=== PATIENT | female | born 1960 | race Caucasian/White ===

== ENCOUNTER 2018-06-02 13:14 | Emergency (ER) | payer OTHER ==
[2018-06-02 13:52] VITALS: BP 131/69; PULSE 81; TEMP 99.8; BMI 41.1
--- NOTE | 2018-06-02 14:28 | PDOC ---
History of Present Illness - General Chief Complaint: Injury Stated Complaint: INJURY,RT ANKLE Time Seen by Provider: 06/02/18 14:14 - History of Present Illness Initial Comments: 06/02/18 14:22 57-year-old female with a past medical history significant for ADHD, she takes Wellbutrin and Prozac presents for evaluation of right ankle and foot pain after a fall at work earlier today while coming down some steps. She denies hitting her head. She describes an inversion type of injury to her right ankle and foot. No postinjury nausea vomiting or visual changes no other associated symptoms besides right ankle and foot pain. Past History - Past Medical History Allergies/Adverse Reactions: Allergies Allergy/AdvReac Type Severity Reaction Status Date / Time Penicillins Allergy Verified 06/02/18 13:52 Home Medications: Ambulatory Orders Acetaminophen W/ Codeine #3 [Tylenol # 3] 1 combo PO Q8H PRN #1 tablet 02/28/12 Bupropion HCl [Wellbutrin -] 150 mg PO DAILY #1 tablet 02/28/12 Fluoxetine [Fluoxetine HCl] 80 mg PO HS #1 powder 02/28/12 Levothyroxine [Synthroid -] 125 mcg PO DAILY #1 tablet 02/28/12 Anemia: No Asthma: No Cancer: No Cardiac Disorders: No CVA: No COPD: No CHF: No Dementia: No Diabetes: No GI Disorders: No Disorders: No HTN: No Hypercholesterolemia: No Liver Disease: No Seizures: No Thyroid Disease: Yes (HYPOTHYROIDISM) - Surgical History Abdominal Surgery: Yes (FIBROID REMOVAL) Appendectomy: No Cardiac Surgery: No Cholecystectomy: No Lung Surgery: No Neurologic Surgery: No Orthopedic Surgery: No - Suicide/Smoking/Psychosocial Hx Smoking History: Never smoked Have you smoked in the past 12 months: No Information on smoking cessation initiated: No Hx Alcohol Use: No Drug/Substance Use Hx: No Substance Use Type: None Hx Substance Use Treatment: No Review of Systems - Review of Systems Musculoskeletal: Yes: See HPI, Joint Pain All Other Systems: Reviewed and Negative *Physical Exam - Vital Signs Last Vital Signs Temp Pulse Resp BP Pulse Ox 99.8 F H 81 16 131/69 100 06/02/18 13:50 06/02/18 13:50 06/02/18 13:50 06/02/18 13:50 06/02/18 13:50 - Physical Exam Comments: 06/02/18 14:28 Right ankle skin color and temperature are normal there is swelling about the lateral aspect of the ankle. Right foot is ecchymotic about the dorsal lateral aspect of the foot with swelling. There is no tenderness about the knee and proximal fibula or along its distal course. There is mild tenderness about the lateral malleolus and area of the ATFL there is tenderness about the base of the fifth metatarsal. No tenderness about the medial malleolus deltoid or navicular. Range of motion is limited she is unable to tolerate stability testing, there are no gross sensorimotor deficits buying calf are soft and nontender. He is neurovascularly intact ED Treatment Course - RADIOLOGY Radiology Studies Ordered: Category Date Time Status ANKLE & FOOT-RIGHT* [RAD] Stat Radiology 06/02/18 14:17 Ordered Medical Decision Making - Medical Decision Making 06/02/18 14:44 There is an old fracture at the shaft of the fifth metatarsal and an acute fracture at the styloid of the fifth metatarsal Archuleta wrap weight-bear as tolerated with use of crutches and hard sole shoe follow-up with orthopedics for the fracture and ankle sprain *DC/Admit/Observation/Transfer Diagnosis at time of Disposition: Fracture, foot, Ankle sprain - Discharge Dispostion Disposition: HOME Condition at time of disposition: Stable Decision to Admit order: No - Referrals Referrals: Maliha Urena MD [Primary Care Provider] - Jl Esteban MD [Staff Physician] - - Patient Instructions Printed Discharge Instructions: Foot Fracture, DI for Foot Fracture, Ankle Sprain, DI for Ankle Sprain Additional Instructions: He may weight-bear as tolerated with use of crutches and the hard sole shoe. Please Karin Geremias wrap in place until seen by orthopedic surgery return to the emergency room should symptoms worsen or go unresolved and follow-up with orthopedic surgery in 2-3 days for further evaluation and treatment options. He may take Tylenol and Motrin as directed for pain. - Post Discharge Activity
== END 2018-06-02 15:02 | disposition home or self-care (01) ==
LOC: JERFT 13:14
DX: S92.351A Displaced fracture of fifth metatarsal bone, right foot, initial encounter for closed fracture (principal); S93.491A Sprain of other ligament of right ankle, initial encounter; W10.9XXA Fall (on) (from) unspecified stairs and steps, initial encounter; Y93.89 Activity, other specified; Y92.89 Other specified places as the place of occurrence of the external cause; Y99.0 Civilian activity done for income or pay
CPT/HCPCS: 73610-TC-RT-FY; 73630-TC-RT-FY; 99281-25

== ENCOUNTER 2019-04-24 19:01 | Emergency (ER) | payer OTHER ==
[2019-04-24 19:14] VITALS: BP 148/75; PULSE 77; TEMP 99; BMI 41.1
--- NOTE | 2019-04-24 19:42 | PDOC ---
History of Present Illness - General Chief Complaint: Ear Problem Stated Complaint: HEARING LOSS TO LT EAR Time Seen by Provider: 04/24/19 19:20 History Source: Patient Exam Limitations: No Limitations - History of Present Illness Initial Comments: 04/24/19 19:43 HISTORY OF PRESENT ILLNESS: This is a 58-year-old woman who presents emergency department for evaluation of left ear pain and decreased hearing over the past 3 days. Patient reports when she lays with her left ear down the pain in clog sensation she is experiencing in the ear temporarily resolves and her hearing returned to normal. Patient noted when she woke up this morning there is some dried crusted mucus on her face which had originated from her left ear. She denies any earbud or headphone usage. Patient denies any recent swimming in the past 2 weeks. No recent travel or sick contacts. PAST MEDICAL HISTORY: Denies past medical history SURGICAL HISTORY: Denies ALLERGIES: PCN REVIEW OF SYSTEMS General/Constitutional: Denies fever or chills. Denies weakness, weight change. HEENT: see HPI Cardiovascular: Denies chest pain or shortness of breath. Respiratory: Denies cough, wheezing, or hemoptysis. Gastrointestinal: Denies nausea, vomiting, diarrhea or constipation. Denies rectal bleeding. Genitourinary: Denies dysuria, frequency, or change in urination. Musculoskeletal: Denies joint or muscle swelling or pain. Denies neck or back pain. Skin and breasts: Denies rash or easy bruising. Neurologic: Denies headache, vertigo, loss of consciousness, or loss of sensation. Psychiatric: Denies depression or anxiety. Endocrine: Denies increased thirst. Denies abnormal weight change. Hematologic/Lymphatic: Denies anemia, easy bleeding, or history of blood clots. Allergic/Immunologic: Denies hives or skin allergy. Denies latex allergy. PHYSICAL EXAM General Appearance: Well-appearing, appropriately dressed. No apparent distress , no intoxication. HEENT: EOMI, PERRLA, normal ENT inspection, normal voice, TMs normal, pharynx normal. No conjunctival pallor. No photophobia, scleral icterus. Left EAC with purulent drainage present. Inflammation present and unable to visualize left TM due to swelling. Left tragal tenderness. Respiratory/Chest: Lungs CTAB. No shortness of breath, chest tenderness, respiratory distress, accessory muscle use. No crackles, rales, rhonchi, stridor , wheezing, dullness Cardiovascular: RRR. S1, S2. No JVD, murmur, bradycardia, tachycardia. Neurologic: drum attendant II-XII intact. Fully oriented, alert. Appropriate mood/affect. Motor strength 5/5. No appreciable EOM palsy, facial droop or sensory deficit. Past History - Past Medical History Allergies/Adverse Reactions: Allergies Allergy/AdvReac Type Severity Reaction Status Date / Time Penicillins Allergy Verified 04/24/19 19:14 Home Medications: Ambulatory Orders Acetaminophen W/ Codeine #3 [Tylenol # 3] 1 combo PO Q8H PRN #1 tablet 02/28/12 Bupropion HCl [Wellbutrin -] 150 mg PO DAILY #1 tablet 02/28/12 Fluoxetine [Fluoxetine HCl] 80 mg PO HS #1 powder 02/28/12 Levothyroxine [Synthroid -] 125 mcg PO DAILY #1 tablet 02/28/12 Erythromycin 0.5% Eye Ointment [Erythromycin 0.5% Eye Ointment -] 1 applic TP DAILY #1 tube 09/07/18 Azithromycin [Zithromax 250mg Tablets -] 250 mg PO UTDICT #6 tab 04/24/19 Ciprofloxacin HCl/Dexameth [Ciprodex Otic Suspension] 4 drop BID #1 bottle Anemia: No Asthma: No Cancer: No Cardiac Disorders: No CVA: No COPD: No CHF: No Dementia: No Diabetes: No GI Disorders: No Disorders: No HTN: No Hypercholesterolemia: No Liver Disease: No Psychiatric Problems: Yes (ADHD depression) Seizures: No Thyroid Disease: Yes (HYPOTHYROIDISM) Other medical history: osteoarthritis to hips - Surgical History Abdominal Surgery: Yes (FIBROID REMOVAL) Appendectomy: No Cardiac Surgery: No Cholecystectomy: No Lung Surgery: No Neurologic Surgery: No Orthopedic Surgery: No - Suicide/Smoking/Psychosocial Hx Smoking History: Never smoked Have you smoked in the past 12 months: No Hx Alcohol Use: No Drug/Substance Use Hx: No Substance Use Type: None Hx Substance Use Treatment: No *Physical Exam - Vital Signs Last Vital Signs Temp Pulse Resp BP Pulse Ox 99.0 F 77 18 148/75 96 04/24/19 19:11 04/24/19 19:11 04/24/19 19:11 04/24/19 19:11 04/24/19 19:11 Medical Decision Making - Medical Decision Making 04/24/19 19:41 A/P: 58-year-old woman with acute otitis externa of the left ear Left tragal tenderness noted No mastoid tenderness present bilaterally Unable to visualize left TM due to excessive swelling in the external auditory canal. I will treat patient for otitis media as well should this be a suppuritive otitis media. Discharge home *DC/Admit/Observation/Transfer Diagnosis at time of Disposition: Otitis externa Qualifiers: Otitis externa type: unspecified type Chronicity: acute Laterality: left Qualified Code(s): H60.502 - Unspecified acute noninfective otitis externa, left ear - Discharge Dispostion Disposition: HOME Condition at time of disposition: Stable Decision to Admit order: No - Prescriptions Prescriptions: Azithromycin [Zithromax 250mg Tablets -] 250 mg PO UTDICT #6 tab Ciprofloxacin HCl/Dexameth [Ciprodex Otic Suspension] 4 drop BID #1 bottle - Referrals Referrals: Isiah Cash MD [Staff Physician] - - Patient Instructions Additional Instructions: Rest, lots of fluids; water, teas, soups Hot wet soaks to ear/hot packs may help relieve some pain May use [id number] anesthetic drops to ears to help relieve some pain Avoid getting water in ear, may use alcohol drops to help dry up any water retained in ears Use earplugs when swimming to avoid any water retention Continue ibuprofen or Tylenol for pain and fevers Ciprodex otic solution 3 drops 2 times a day for 7 days Azithromycin as directed. Followup with private physician / ENT doctor in 2-3 days Return to emergency department or see private physician immediately for swelling , redness, from ears, or fevers, - Post Discharge Activity
== END 2019-04-24 19:48 | disposition home or self-care (01) ==
LOC: JERFT 19:01
DX: H60.502 Unspecified acute noninfective otitis externa, left ear (principal); H66.92 Otitis media, unspecified, left ear; E03.9 Hypothyroidism, unspecified; F90.9 Attention-deficit hyperactivity disorder, unspecified type; F32.9 Major depressive disorder, single episode, unspecified; M16.0 Bilateral primary osteoarthritis of hip
CPT/HCPCS: 99281-25

== ENCOUNTER 2020-10-12 15:40 | Emergency (ER) | payer OTHER ==
[2020-10-12] MEDS ORDERED: BAMLANIVIMAB 700 MG in SODIUM CHLORIDE 250 ML IVPB ONE (15:58)
[2020-10-12 16:07] VITALS: BMI 34.0
[2020-10-12 17:58] VITALS: BP 151/91; PULSE 76; TEMP 98.8
[2020-10-12 18:55] LABS: BASO % 0.8 % (0-2.0); EOS % 1.3 % (0-4.5); HEMATOCRIT 44.6 % (32.4-45.2); HEMOGLOBIN 15.4 GM/dL (10.7-15.3); LYMPH % 30.1 % (8-40); MCHC 34.6 g/dl (32.0-36.0); MEAN CELL VOLUME 89.8 fl (80-96); MEAN PLT VOLUME 7.7 fl (7.5-11.1); MONO % 12.6 % (3.8-10.2); NEUT % 55.2 % (42.8-82.8); PLATELET COUNT 340 K/MM3 (134-434); RBC 4.96 M/mm3 (3.60-5.2); RDW 12.8 % (11.6-15.6); WHITE BLOOD COUNT 4.2 K/mm3 (4.0-10.0)
[2020-10-12 19:26] LABS: POTASSIUM 3.9 mmol/L (3.5-5.1)
[2020-10-12 19:29] LABS: ALBUMIN 4.1 g/dl (3.4-5.0); BLOOD UREA NITROGEN 12.8 mg/dL (7-18); CALCIUM 9.4 mg/dL (8.5-10.1)
[2020-10-12 19:32] LABS: CREATININE 0.8 mg/dL (0.55-1.3)
[2020-10-12 19:34] LABS: BILIRUBIN,TOTAL 0.3 mg/dL (0.2-1); TOT PROT 7.6 g/dl (6.4-8.2)
== END 2020-10-12 19:33 | disposition home or self-care (01) ==
LOC: JCOVINFU 15:40 → JER 15:40 → JCOVINFU 19:33
DX: U07.1 COVID-19 (principal)
CPT/HCPCS: 36415; 80053; 85025; 99284-25; M0239; Q0239

== ENCOUNTER 2024-05-06 18:35 | Emergency (ER) | payer BC ==
[2024-05-06 18:40] VITALS: BMI 29.2
[2024-05-06] MEDS ORDERED: ACETAMINOPHEN 325 MG TABLET (FP) ONE (18:46)
[2024-05-06] MEDS: ACETAMINOPHEN 500 MG TABLET (FP) PO ONE (18:49)
[2024-05-06] MEDS ORDERED: LIDOCAINE HCL 1%, 10 MG/ML (20ML VIAL) ONE (19:38)
[2024-05-06] MEDS: LIDOCAINE HCL 1%, 10 MG/ML (50 mL VIAL) INF ONE (20:22)
[2024-05-06 21:00] VITALS: BP 171/91; PULSE 65; RESP 16; TEMP 98.8
[2024-05-06] MEDS ORDERED: oxyCODONE HCL 5 MG TABLET ONE (21:25)
[2024-05-06] MEDS: oxyCODONE HCL 5 MG TABLET PO ONE (21:32)
== END 2024-05-06 21:32 | disposition home or self-care (01) ==
LOC: JER 18:35
PROC: 2W3DX1Z Immobilization of Left Lower Arm using Splint (ICD-10-PCS; principal; 2024-05-06)
DX: S52.502A Unspecified fracture of the lower end of left radius, initial encounter for closed fracture (principal); W01.0XXA Fall on same level from slipping, tripping and stumbling without subsequent striking against object, initial encounter
CPT/HCPCS: 73090-TC-LT-FY; 73110-TC-LT-FY; 73130-TC-LT-FY; 99283-25